=== PATIENT | male | born 1965 ===

== ENCOUNTER 2022-04-03 18:02 | Emergency (ER) | payer OTHER ==
[2022-04-03] MEDS ORDERED: SODIUM CHLORIDE 0.9% 1000 ML 1,000 ML IV ONE (19:35)
[2022-04-03 20:22] LABS: Basophils % (Auto) 0.3 % (0.0-1.8); Eosinophils # (Auto) 0.1 K/mm3 (0.0-0.4); Eosinophils % (Auto) 0.6 % (0.0-4.3); Hematocrit 44.3 % (35.5-45.6); Hemoglobin 14.8 gm/dl (11.8-15.2); Lymphocytes # (Auto) 1.3 K/mm3 (1.2-5.4); Lymphocytes % (Auto) 11.3 % (13.4-35.0); Mean Corpuscular HGB Conc 34 % (32-34); Mean Corpuscular Volume 86 fl (84-94); Monocytes # (Auto) 0.5 K/mm3 (0.0-0.8); Monocytes % (Auto) 4.8 % (0.0-7.3); Platelet Count 192 K/mm3 (140-440); Red Blood Count 5.15 M/mm3 (3.65-5.03); Red Cell Distribution Width 14.1 % (13.2-15.2)
[2022-04-03 20:33] LABS: Blood Urea Nitrogen 12 mg/dL (9-20); Hemolysis Index 7
[2022-04-03 20:40] LABS: BUN/Creatinine Ratio 20
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
[2022-04-03 22:00] LABS: Alanine Aminotransferase 15 units/L (7-56); Albumin 4.5 g/dL (3.9-5)
[2022-04-03 22:16] LABS: Bilirubin,Direct < 0.2 mg/dL (0-0.2)
--- NOTE | 2022-04-03 22:30 | Cat Scan Report ---
CT ABDOMEN AND PELVIS WITH CONTRAST HISTORY: Abdominal Pain. COMPARISON: None. TECHNIQUE: CT images of the abdomen and pelvis were obtained following administration of intravenous contrast. All CT scans at this location are performed using CT dose reduction for ALARA by means of automated exposure control. CONTRAST: 100 ml of intravenous contrast administered. FINDINGS: Lungs/bones: Lung bases are clear Abdomen/pelvis: There is diffuse fatty infiltration of the liver. Spleen, adrenal glands, pancreas, gallbladder and upper GI tract appear normal. Small right renal cyst is seen. No hydronephrosis. Urin raymond bladder wall appears thickened. The prostate is markedly enlarged. No dominant adenopathy is seen . IMPRESSION: 1. No acute traumatic abnormality. There is some thickening of the urinary bladder wall. Clinical cor relation. Prostate is enlarged. Correlate with PSA. Signer Name: Geoffrey Bernardo MD Signed: 04/03/2022 10:25 PM Workstation Name: [id number]
[2022-04-04 00:02] VITALS: BP 127/91
== END 2022-04-04 00:04 | disposition home or self-care (01) ==
LOC: ED 18:02
DX: R07.89 Other chest pain (principal); R10.11 Right upper quadrant pain; N40.0 Benign prostatic hyperplasia without lower urinary tract symptoms; V89.2XXA Person injured in unspecified motor-vehicle accident, traffic, initial encounter; Y93.89 Activity, other specified; Y92.89 Other specified places as the place of occurrence of the external cause; Y99.8 Other external cause status
CPT/HCPCS: 36415; 71045; 74177; 80048; 80076; 82150; 83690; 85025; 96360; 99285; J7030; Q9967